=== PATIENT | female | born 1960 | race Caucasian/White ===

== ENCOUNTER 2017-06-08 20:08 | Emergency (ER) | payer OTHER ==
[2017-06-08 20:21] VITALS: BP 143/81; PULSE 75; TEMP 98.1; BMI 21.5
[2017-06-08] MEDS ORDERED: ACETAMINOPHEN 325 MG TABLET (FP) PO ONE (21:21)
[2017-06-08] MEDS ORDERED: ACETAMINOPHEN 325 MG TABLET (FP) ONE (21:35)
--- NOTE | 2017-06-08 21:53 | PDOC ---
History of Present Illness - General Chief Complaint: Injury Stated Complaint: FALL INJURY Time Seen by Provider: 06/08/17 20:58 History Source: Family, [employer] S[employer] Operator Used Exam Limitations: Language Barrier - History of Present Illness Initial Comments: 06/08/17 21:42 56yo Female patient w/ PmHx: DM, HLD, GERD presents to ED c/o head injury, fall , +LOC. Family states patient was carrying granddaughter up flight of steps, when she lost her balance and fell backward striking her head, and injuring lower back. Family report patient experienced +LOC for 2 mins. They deny n/v/d, confusion, disorientation, fever, neck pain, CP, Abd pain, diff breathing, or any other complaints at this time. Occurred: reports: just prior to arrival Severity: reports: moderate Pain Location: reports: back, head Method of Injury: Yes: fall Modifying Factors: worse with: None, cold therapy, immobilization, pain medication, rest, other Loss of Consciousness: prolonged (minutes) Associated Symptoms (Fall): headache Past History - Travel Traveled outside of the country in the last 30 days: No Close contact w/someone who was outside of country & ill: No - Past Medical History Allergies/Adverse Reactions: Allergies Allergy/AdvReac Type Severity Reaction Status Date / Time No Known Allergies Allergy Verified 06/08/17 20:21 Home Medications: Ambulatory Orders Aspirin [ASA -] 81 mg PO DAILY 06/08/17 Calcium Carbonate/Vitamin D3 [Calcium 600 + Vit D Tablet] 1 each PO DAILY Docusate Sodium [Colace -] 100 mg PO DAILY 06/08/17 Meclizine HCl [Antivert -] 25 mg PO DAILY PRN #30 tablet 06/08/17 Nitrofurantoin Monohyd/M-Cryst [Macrobid -] 100 mg PO BID #14 capsule 06/08/17 Ondansetron [Zofran Odt -] 4 mg SL Q6H PRN #30 od.tablet 06/08/17 Ranitidine HCl [Zantac] 150 mg PO HS 06/08/17 Simvastatin 40 mg PO DAILY 06/08/17 Diabetes: Yes - Psycho/Social/Smoking Cessation Hx Suicidal Ideation: No Smoking History: Never smoked Trauma Specific PMHX - Complaint Specific PMHX Arthritis: No Back Injury: No Neck Injury: No Hx Sacro Iliac Joint Dysfunction: No Review of Systems - Review of Systems Able to Perform ROS?: Yes Is the patient limited Kyrgyz proficient: No Constitutional: No: Chills, Fever HEENTM: No: Eye Pain, Nose Pain, Throat Pain, Throat Swelling, Mouth Pain Respiratory: No: Cough, Orthopnea, Shortness of Breath, Stridor, Wheezing Cardiac (ROS): No: Chest Pain, Palpitations, Syncope, Chest Tightness ABD/GI: No: Constipated, Diarrhea, Nausea, Poor Appetite, Poor Fluid Intake, Vomiting Musculoskeletal: Yes: Back Pain, Other (Head Injury) Neurological: Yes: Headache All Other Systems: Reviewed and Negative *Physical Exam - Vital Signs Last Vital Signs Temp Pulse Resp BP Pulse Ox 98.1 F 75 18 143/81 99 06/08/17 20:19 06/08/17 20:19 06/08/17 20:19 06/08/17 20:19 06/08/17 20:19 - Physical Exam General Appearance: Yes: Nourished, Appropriately Dressed. No: Apparent Distress, Mild Distress, Moderate Distress, Severe Distress HEENT: positive: EOMI, JANELLE, Normal ENT Inspection, Normal Voice, Symmetrical, TMs Normal, Pharynx Normal. negative: Pharyngeal Erythema, Tonsillar Exudate, Tonsillar Erythema, Nasal Congestion, Rhinorrhea, Sinus Tenderness, TM Bulging, TM Dull, TM Erythema Neck: positive: Trachea midline, Normal Thyroid, Supple. negative: Tender, Rigid, Stridor, Lymphadenopathy (R), Lymphadenopathy (L), Tender lateral, Tender midline Respiratory/Chest: positive: Lungs Clear, Normal Breath Sounds. negative: Chest Tender, Respiratory Distress, Accessory Muscle Use, Labored Respiration, Rapid RR, Crackles, Rales, Rhonchi, Stridor, Wheezing Cardiovascular: positive: Regular Rhythm, Regular Rate Gastrointestinal/Abdominal: positive: Normal Bowel Sounds, Soft. negative: Distended, Guarding, Rebound, Tenderness Musculoskeletal: positive: Normal Inspection, Vertebral Tenderness (Lumbar- Sacral Region). negative: CVA Tenderness, Decreased Range of Motion Extremity: positive: Normal Capillary Refill, Normal Inspection, Normal Range of Motion, Pelvis Stable. negative: Pedal Edema, Swelling, Calf Tenderness, Erythema, Inflammation Integumentary: positive: Normal Color, Dry, Warm. negative: Rash, Swelling, Ecchymosis, Bruising Neurologic: positive: corporate buyer II-XII NML intact, Fully Oriented, Alert, Normal Mood/ Affect, Normal Response, Motor Strength 02/09 ED Treatment Course - LABORATORY CBC & Chemistry Diagram: 06/08/17 21:20 06/08/17 21:20 - RADIOLOGY Radiology Studies Ordered: Category Date Time Status CERVICAL SPINE CT W/O CONTR [CT] Stat CT Scan 06/08/17 21:[address] WITHOUT CONTRAST [CT] Stat CT Scan 06/08/17 21:21 Ordered SPINE-LUMBAR SACRAL [RAD] Stat Radiology 06/08/17 21:21 Ordered Medical Decision Making - Medical Decision Making 06/08/17 23:34 Neuro-Check intact. Patient follows all commands. *DC/Admit/Observation/Transfer Diagnosis at time of Disposition: UTI (urinary tract infection) Qualifiers: Urinary tract infection type: site unspecified Hematuria presence: without hematuria Qualified Code(s): N39.0 - Urinary tract infection, site not specified Head injury Qualifiers: Encounter type: initial encounter Qualified Code(s): S09.90XA - Unspecified injury of head, initial encounter Fall Qualifiers: Encounter type: initial encounter Qualified Code(s): W19.XXXA - Unspecified fall, initial encounter - Discharge Dispostion Disposition: HOME Condition at time of disposition: Improved Admit: No - Prescriptions Prescriptions: Meclizine HCl [Antivert -] 25 mg PO DAILY PRN #30 tablet PRN Reason: Dizziness Nitrofurantoin Monohyd/M-Cryst [Macrobid -] 100 mg PO BID #14 capsule Ondansetron [Zofran Odt -] 4 mg SL Q6H PRN #30 od.tablet PRN Reason: Nausea - Referrals Referrals: Varghese Calero MD [Staff Physician] - - Patient Instructions Printed Discharge Instructions: DI for Closed Head Injury, DI for Urinary Tract Infection (UTI) Additional Instructions: Follow up with Dr. Calero (Neurology). Take medications as prescribed. Drink plenty fluids and try cranberry juice to prevent urinary tract infection in future. Return if your symptoms worsen or any concerns for further evaluation. Zofran for Nausea, Meclizine for Dizziness, Macrobid is antibiotic for UTI. Print Language: [facility]
[2017-06-08 21:59] LABS: BASOPHIL 0.2 % (0-2.0); EOSINOPHIL 2.3 % (0-4.5); MCH 23.4 pg (25.7-33.7); MCHC 32.9 g/dl (32.0-36.0); MEAN CELL VOLUME 71.3 fl (80-96); MEAN PLT VOLUME 8.5 fl (7.5-11.1); NEUTROPHILS 59.1 % (42.8-82.8); PLATELET COUNT 238 K/MM3 (134-434); RDW 14.5 % (11.6-15.6); WHITE BLOOD COUNT 9.7 K/mm3 (4.0-10.0)
[2017-06-08 22:28] LABS: ANION GAP 10 (8-16); BILIRUBIN,TOTAL 0.3 mg/dL (0.2-1.0); CALCIUM 9.2 mg/dL (8.5-10.1); CO2 24 mmol/L (21-32); CREATININE 0.7 mg/dL (0.55-1.02); GLUCOSE,RANDOM 98 mg/dL (74-106); SGOT/AST 22 U/L (15-37); SGPT/ALT 32 U/L (12-78); TOT PROT 7.9 g/dl (6.4-8.2)
[2017-06-08 22:29] LABS: ALK PHOS 68 U/L (45-117)
[2017-06-08 22:43] LABS: URINE APPEARANCE CLEAR; URINE BILIRUBIN NEGATIVE (NEGATIVE); URINE BLOOD NEGATIVE (NEGATIVE); URINE COLOR LT. YELLOW; URINE GLUCOSE (UA) NEGATIVE (NEGATIVE); URINE KETONE NEGATIVE (NEGATIVE); URINE NITRITE NEGATIVE (NEGATIVE); URINE PROTEIN NEGATIVE (NEGATIVE); URINE UROBILINOGEN 0.2 mg/dL (0.2-1.0)
[2017-06-08 22:47] LABS: URINE LEUK ESTERASE 1+ (NEGATIVE)
[2017-06-08 22:57] LABS: URINE BACTERIA RARE /hpf (NONE SEEN); URINE RBC <1 /hpf (0-3); URINE WBC 11 /hpf (3-5)
[2017-06-08] MEDS ORDERED: NITROFURANTOIN MACROCRYSTAL 50 MG CAPSULE (FP) PO SCH (23:45)
== END 2017-06-09 00:05 | disposition home or self-care (01) ==
LOC: JER 20:08
DX: S06.9X1A Unspecified intracranial injury with loss of consciousness of 30 minutes or less, initial encounter (principal); N39.0 Urinary tract infection, site not specified; W10.8XXA Fall (on) (from) other stairs and steps, initial encounter; Y93.F9 Activity, other caregiving; Y92.018 Other place in single-family (private) house as the place of occurrence of the external cause; E11.9 Type 2 diabetes mellitus without complications
CPT/HCPCS: 36415; 70450-TC; 72100-TC; 72125-TC; 80053; 81003; 81015; 85025; 99282-25